=== PATIENT | female | born 1955 | race Caucasian/White ===

== ENCOUNTER 2016-06-23 15:16 | Emergency (ER) | payer OTHER, BC ==
--- NOTE | 2016-06-23 16:51 | UCPHY ---
H & P Time Seen by Provider: 06/23/16 16:37 Patient Type: New HPI/ROS: This patient reports 14 days of the illness consisting of nasal congestion primarily for the 1st several days and over the past 5 days she has developed facial pressure in the frontal more than maxillary sinus region that worsens when she bends over coughs. She has associated feeling of wheeze and some substernal tightness that feels similar to previous asthma. She reports a dry cough with occasional yellow sputum that improves with albuterol with no other exacerbating factors. ROS: Low-grade subjective fevers. No high fevers. No other constitutional symptoms. HEENT: No sore throat. No ear pain. No headache. Pulmonary: No respiratory distress. No pleuritic pain cardiovascular: No lightheadedness. No heart palpitations no lower extremity swelling. GI: No belly pain neuro: No complaints 7 point ROS is otherwise negative. Past Medical/Surgical History: Traumatic brain injury Asthma versus RAD Smoking Status: Never smoked Physical Exam: Physical Exam Vital signs are normal. General: No acute distress HEENT: Nose: Swollen nasal mucosa bilaterally with sinus tenderness to percussion in the frontal more than maxillary sinuses bilaterally. Ears: External canals and TMs clear bilaterally oropharynx: No erythema exudates or dysphonia. Eyes: Pupils equal and react to light. Extraocular motions are intact. Lungs: Clear to auscultation bilaterally. Currently no significant wheezing but faint wheeze when she coughs. No rales or rhonchi. No respiratory distress. Cardiac: Regular rate and rhythm with no murmur gallop rub. No peripheral edema. Skin: No rash or pallor. Neuro: Alert with no sensorimotor deficits. Initial differential diagnosis: Bronchitis, sinusitis, reactive airway disease , doubt influenza or pneumonia Constitutional: Initial Vital Signs Temperature (C) 36.4 C 06/23/16 16:40 Heart Rate 72 06/23/16 16:40 Respiratory Rate 18 06/23/16 16:40 Blood Pressure 140/92 H 06/23/16 16:40 O2 Sat (%) 99 06/23/16 16:40 O2 Delivery Mode Room Air Allergies/Adverse Reactions: clarithromycin [From Biaxin] Allergy (Verified 06/23/16 16:37) indomethacin [From Indocin] Allergy (Verified 06/23/16 16:36) indomethacin sodium [From Indocin] Allergy (Verified 06/23/16 16:36) Home Medications: Medication Instructions Recorded ALBUTEROL SULFATE 06/23/16 Doxycycline Hyclate 100 mg PO BID #14 capsule 06/23/16 Fioricet (*) 06/23/16 Fluticasone Hfa 220 Mcg [Flovent 2 puffs IH DAILY #1 mdi 06/23/16 220 MCG Hfa MDI (*)] Xanax 06/23/16 MDM/Departure - [facility] ED Course/Re-evaluation: Patient's vitals are normal and she appears well clinically. I counseled regarding sinusitis and reactive airway disease. Will start her on doxycycline Flovent. She already has albuterol at home with will continue to use the - Depart Disposition: Home, Routine, Self-Care Clinical Impression: Sinusitis Qualifiers: Sinusitis location: frontal Chronicity: acute Recurrence: non-recurrent Qualifier Code: (J01.10) Acute frontal sinusitis, unspecified Reactive airway disease Qualifiers: Asthma severity: mild intermittent Asthma complication type: with acute exacerbation Qualifier Code: (J45.21) Mild intermittent asthma with (acute) exacerbation Instructions: Reactive Airways Disease (ED), Sinusitis (ED) Additional Instructions: Diagnosis: 1. Sinusitis 2. Reactive airway disease Plan: Humidifier Doxycycline antibiotic Flovent steroid inhaler Continue albuterol inhaler with spacer for cough, wheeze or shortness of breath Call primary care physician to arrange follow-up appointment for further evaluation sometime within the next 3-5 days Good the emergency department for any significant worsening despite the treatment plan. Prescriptions: Doxycycline Hyclate 100 mg PO BID #14 capsule Fluticasone Hfa 220 Mcg [Flovent 220 MCG Hfa MDI (*)] 2 puffs IH DAILY #1 mdi Referrals: Sangeeta Gupta MD [Primary Care Provider] - As per Instructions - PQRS PQRS Measurement: NA
[2016-06-23 17:12] VITALS: BP 132/86; PULSE 64; RESP 16; TEMP 97.3; O2SAT 95
== END 2016-06-23 17:13 | disposition home or self-care (01) ==
LOC: CED 15:16
DX: J01.10 Acute frontal sinusitis, unspecified (principal); J45.21 Mild intermittent asthma with (acute) exacerbation
CPT/HCPCS: 99203-PO; G0463-PO

== ENCOUNTER → 2016-07-09 | Outpatient (CLI) | payer OTHER, BC ==
--- NOTE | 2016-07-09 18:16 | MA ---
Screening Digital Mammogram With iCAD Indication: Routine screening. Technique: Standard cephalocaudal and mediolateral oblique projections are obtained. This examinati on is processed by the iCAD computer-aided detection system. Comparison: May 2015 and January 2014. Breast density: Type B. Findings: CAD was reviewed. Heterogeneous microcalcifications and architectural distortion have devel oped in the deep upper-outer right breast at the 10-11 o'clock position (largely off the lateral gigi in of the film on the CC view). The left mammograms are negative. Impression: Development of heterogeneous microcalcifications and architectural distortion deep upper- outer right breast. BI-RADS 0: Needs additional imaging evaluation. Recommendation: Spot magnified exaggerated lateral CC, MLO and true lateral views of the upper-outer right breast. Proceed with sonography of the upper outer right breast at the discretion of the inter preting radiologist. [facility] will send a result letter to the patient. Negative mammography should not preclude additional workup of a clinically suspicious finding. The patient's information is entered into a reminder system with a target due date for her next mammo gram.
== END ==
LOC: FIMAGING 14:32
DX: Z12.31 Encounter for screening mammogram for malignant neoplasm of breast (principal)
CPT/HCPCS: G0202

== ENCOUNTER → 2016-07-18 | Outpatient (CLI) | payer OTHER, BC | LOC: FIMAGING 12:40 | PROVIDERS: ATTEND Internal Medicine | DX: Z12.39 Encounter for other screening for malignant neoplasm of breast (principal); R92.0 Mammographic microcalcification found on diagnostic imaging of breast | CPT/HCPCS: 76641; G0206 ==

== ENCOUNTER → 2016-08-06 | Outpatient (CLI) | payer OTHER, BC ==
[~2016-08-06] MED LIST: THROMBIN (RECOMBINANT) 5,000 UNIT VIAL TP ONE
== END ==
LOC: FIMAGING 13:25
PROVIDERS: ATTEND Internal Medicine
PROC: 0HBT3ZX Excision of Right Breast, Percutaneous Approach, Diagnostic (ICD-10-PCS; principal; 2016-08-06)
PROC: BH00ZZZ Plain Radiography of Right Breast (ICD-10-PCS; principal; 2016-08-06)
DX: C50.911 Malignant neoplasm of unspecified site of right female breast (principal); R92.0 Mammographic microcalcification found on diagnostic imaging of breast; Z17.0 Estrogen receptor positive status [ER+]
CPT/HCPCS: 19083; 88305; 88341; 88342; 88360; 88361; G0206

== ENCOUNTER 2016-09-04 06:02 | Day surgery (SDC) | payer OTHER, BC ==
[2016-09-04] MEDS ORDERED: LIDOCAINE 1% 5 ML SDV ONE (07:06)
[2016-09-04] MEDS ORDERED: ceFAZolin 2 GM/DEXTROSE 100 ML IV ONE (08:00)
[2016-09-04] MEDS ORDERED: BUPIVACAINE 0.5% 30 ML SDV ONE (09:28)
[2016-09-04] MEDS ORDERED: LR 1,000 ML IV ONE (09:43)
[2016-09-04] MEDS ORDERED: LIDOCAINE 1% 5 ML SDV ID PRN (09:43)
[2016-09-04] MEDS ORDERED: MIDAZOLAM 2 MG/2 ML VIAL ONE (09:59)
[2016-09-04] MEDS ORDERED: fentaNYL 100 MCG/2 ML INJ ONE ×3 (10:05→11:43)
[2016-09-04] MEDS ORDERED: PROPOFOL/EMULSION 500 MG/50 ML BOTTLE IV ONE (10:06)
--- NOTE | 2016-09-04 11:14 | GOP ---
[f rep st] OPERATIVE REPORT DATE OF OPERATION: 09/04/2016 SURGEON: Eunice Hanson MD QUANTITATIVE EQUITY HEAD: Lashell Diaz, ACOSTA ANESTHESIA: General. ANESTHESIOLOGIST: Jaylan Ruelas MD PREOPERATIVE DIAGNOSIS: Right upper outer breast cancer. POSTOPERATIVE DIAGNOSIS: Right upper outer breast cancer. PROCEDURE PERFORMED: 1. Right breast lumpectomy with right sentinel lymph node. 2. Right needle localized lumpectomy. FINDINGS: 1. Clips in specimen. 1. Negative lymph node. 2. SPECIMENS: Lumpectomy, sentinel lymph node and margins. ESTIMATED BLOOD LOSS: 10 cc. INDICATIONS: The patient is a 60-year-old woman with invasive breast cancer in the right upper oute r quadrant. DESCRIPTION OF PROCEDURE: She was brought into the operating room, placed supine on the table, and general anesthesia was administered. Her right breast and axilla were prepped and draped in the usu al sterile fashion. I infiltrated the area with 10 cc of 0.5% Marcaine. I made an ellipse around t he 2 localizing wires. I created medial and lateral flaps. I dissected down beyond the level of [facility] wire. The mass was marked green anterior, red superior, yellow medial, blue inferior, orange late ral, black posterior. This was submitted to Radiology and the clips were within the specimen. Next, I broke into the axillary space and identified the sentinel lymph node. It measured 140. Thi s was sent to Pathology and the results were negative. I obtained margins from the lumpectomy cavit y, red superior, yellow medial, blue inferior, orange lateral, black posterior. The cavity was michelle ed with 3 titanium clips. Hemostasis was achieved. The deep layer of the wound was closed with 3-0 Vicryl. Skin was closed with 3-0 Vicryl followed by 4-0 Monocryl. Mastisol, Steri-Strips, and arya rile dressing were applied. She was awakened in the operating room, extubated and transferred to [facility] PACU in stable condition. /[id number]/MODL
[2016-09-04] MEDS ORDERED: ONDANSETRON 4 MG/2 ML VIAL ONE (12:50)
== END 2016-09-04 15:37 | disposition home or self-care (01) ==
LOC: FSGY 06:02
PROVIDERS: ATTEND Surgery
PROC: 3E0W3KZ Introduction of Other Diagnostic Substance into Lymphatics, Percutaneous Approach (ICD-10-PCS; principal; 2016-09-04 10:00)
PROC: 0HBT0ZZ Excision of Right Breast, Open Approach (ICD-10-PCS; principal; 2016-09-04 10:00)
PROC: 07B50ZX Excision of Right Axillary Lymphatic, Open Approach, Diagnostic (ICD-10-PCS; principal; 2016-09-04 10:00)
DX: C50.411 Malignant neoplasm of upper-outer quadrant of right female breast (principal); R92.0 Mammographic microcalcification found on diagnostic imaging of breast; E03.9 Hypothyroidism, unspecified; E78.5 Hyperlipidemia, unspecified; Z87.81 Personal history of (healed) traumatic fracture; Z17.0 Estrogen receptor positive status [ER+]
CPT/HCPCS: 19281; 19301; 38525; 76098; 78195; A9520; J0690; J2250; J2405; J2704; J3010

== ENCOUNTER → 2016-10-26 | Outpatient (CLI) | payer OTHER, BC | LOC: FIMAGING 15:41 | PROVIDERS: ATTEND Nurse Practitioner | DX: R05 Cough (principal) ==

== ENCOUNTER 2017-04-27 11:53 | Emergency (ER) | payer OTHER, BC ==
[2017-04-27 12:06] VITALS: O2SAT 95
[2017-04-27] MEDS ORDERED: IBUPROFEN 600 MG TAB PO ONE (12:10)
[2017-04-27] MEDS ORDERED: HYDROCODONE/APAP 5/325 TAB PO ONE (12:22)
--- NOTE | 2017-04-27 12:22 | EDPHY ---
HPI/HX/ROS/PE/MDM Narrative: CHIEF COMPLAINT: Left ankle injury HPI: The patient is a 61 y/o female arriving with her complaining of left ankle pain secondary to slipping on stairs today. She was carrying stuff down her basement stairs and slipped off the last step and landed on her left side. She caught some of her fall with her left arm, but primarily injured her left ankle. She was able to walk afterwards, but her pain has worsened. It is primarily located along the lateral aspect of her foot and extends into her midfoot and she also has some pain on the lateral aspect of her left knee. She denies other injuries, weakness, or paresthesias. REVIEW OF SYSTEMS: Aside from elements discussed in the HPI, a comprehensive 10-point review of systems was reviewed and is negative. PMH: Anxiety SOCIAL HISTORY: at bedside. PHYSICAL EXAM: General:Patient is alert, in no acute distress. ENT:Eyes are normal to inspection. ENT inspection normal. Neck: Normal inspection. Full range of motion. Respiratory:No respiratory distress. Breath sounds normal bilaterally. Cardiovascular: Regular rate and rhythm. Strong peripheral pulses. Normal cap refill. Abdomen:The abdomen is nontender to palpation. There are no peritoneal signs. Back: Normal to inspection. No tenderness to palpation. Skin: Normal color. No rash. Warm and dry. Extremities: Mild tenderness to lateral aspect of left ankle with some swelling , otherwise normal appearance. Full range of motion. Neuro: Oriented x3. Normal motor function. Normal sensory function. ED Course: This is a healthy 61 y/o female who presents with left ankle pain secondary to slipping and falling off a step this morning. She has mild tenderness over the lateral malleolus with mild overlying swelling. No other trauma noted. She is neurovascularly intact. Plan for knee and ankle x-rays to rule out fracture. 600mg PO ibuprofen and 1 tab Vicodin administered for pain. X-rays are negative for fracture. Reevaluated patient and discussed results. She will be discharged home in splint with standard sprain care instructions. Return precautions discussed. She agrees with plan. - Data Points Imaging Results: Imaging Impressions Ankle X-Ray 04/27/17 12:22 Impression: Negative. No acute fracture. Knee X-Ray 04/27/17 12:22 Impression: Negative. No acute fracture or effusion. Imaging: I viewed and interpreted images myself Medications Given: Discontinued Medications Hydrocodone Bitart/Acetaminophen ([place] 5/325) 1 tab PO EDNOW ONE Stop: 04/27/17 12:23 Last Admin: 04/27/17 12:32 Dose: 1 tab Ibuprofen (Motrin) 600 mg PO EDNOW ONE Stop: 04/27/17 12:11 Last Admin: 04/27/17 12:12 Dose: 600 mg General Time Seen by Provider: 04/27/17 12:12 Initial Vital Signs: Initial Vital Signs Temperature (C) 37 C 04/27/17 11:58 Heart Rate 69 04/27/17 11:58 Respiratory Rate 22 H 04/27/17 11:58 Blood Pressure 136/69 H 04/27/17 11:58 O2 Sat (%) 95 04/27/17 11:58 O2 Delivery Mode Room Air Allergies/Adverse Reactions: clarithromycin [From Biaxin] Allergy (Verified 04/27/17 11:57) indomethacin [From Indocin] Allergy (Verified 04/27/17 11:57) indomethacin sodium [From Indocin] Allergy (Verified 04/27/17 11:57) Home Medications: Medication Instructions Recorded ALBUTEROL SULFATE 06/23/16 Fioricet (*) 06/23/16 Fluticasone Hfa 220 Mcg [Flovent 2 puffs IH DAILY #1 mdi 06/23/16 220 MCG Hfa MDI (*)] Xanax 06/23/16 LEVOTHYROXINE SODIUM 04/27/17 Departure - Departure Disposition: Home, Routine, Self-Care Clinical Impression: Left ankle sprain Qualifiers: Encounter type: initial encounter Involved ligament of ankle: unspecified ligament Qualified Code(s): S93.402A - Sprain of unspecified ligament of left ankle, initial encounter Condition: Good Instructions: Ankle Sprain (ED) Additional Instructions: 1. Take 600mg ibuprofen every 6-8 hours as needed for pain and swelling for the next few days. 2. Apply ice to sore areas for the first 24-48 hours if helpful with pain. Keep extremity elevated when possible. 3. Wear splint for comfort. Okay to bear weight as tolerated. 4. Follow up with your primary care provider if needed for unimproved symptoms over the next few days. Referrals: FORGOT,DOCTOR [Other] - As per Instructions Eunice Shukla MD [Medical Doctor] - As per Instructions Report Scribed for: Anibal Pena Report Scribed by: Layne Oseguera Date of Report: 04/27/17 Time of Report: 12:22 Physician Review and Approval Statement: Portions of this note were transcribed by an ED scribe. I personally performed the history, physical exam, and medical decision making; and confirm the accuracy of the information in the transcribed note.
[2017-04-27 13:23] VITALS: BP 139/89; PULSE 64; RESP 16; TEMP 97.3
== END 2017-04-27 13:23 | disposition home or self-care (01) ==
DX: S93.402A Sprain of unspecified ligament of left ankle, initial encounter (principal); W01.0XXA Fall on same level from slipping, tripping and stumbling without subsequent striking against object, initial encounter; Y92.89 Other specified places as the place of occurrence of the external cause
CPT/HCPCS: 73564; 73610; 99283; L4386

== ENCOUNTER → 2017-07-24 | Outpatient (CLI) | payer OTHER, BC | LOC: FIMAGING 09:39 | PROVIDERS: ATTEND Internal Medicine Hematology & Oncology | DX: Z12.31 Encounter for screening mammogram for malignant neoplasm of breast (principal); Z85.3 Personal history of malignant neoplasm of breast ==

== ENCOUNTER → 2017-09-12 | Outpatient (CLI) | payer OTHER, BC ==
[~2017-09-12] MED LIST changes: +IOPAMIDOL (ISOVUE-300) 100 ML BTL ONE; -THROMBIN (RECOMBINANT) 5,000 UNIT VIAL TP ONE
== END ==
LOC: FIMAGING 09:05
PROVIDERS: ATTEND Internal Medicine Gastroenterology
DX: R10.31 Right lower quadrant pain (principal); K44.9 Diaphragmatic hernia without obstruction or gangrene
CPT/HCPCS: 74177; Q9967

== ENCOUNTER → 2018-02-19 | Outpatient (CLI) | payer OTHER, BC | LOC: FIMAGING 14:18 | PROVIDERS: ATTEND Internal Medicine Hematology & Oncology | DX: R05 Cough (principal); Z85.3 Personal history of malignant neoplasm of breast ==

== ENCOUNTER 2018-03-22 19:03 | Emergency (ER) | payer OTHER, BC ==
[2018-03-22] MEDS ORDERED: LIDOCAINE 2% VISCOUS 15 ML UDCUP PO ONE (19:38)
[2018-03-22] MEDS ORDERED: HYOSCYAMINE SULFATE 0.125 MG TAB PO ONE (19:38)
[2018-03-22] MEDS ORDERED: IPRATROPIUM/ALBUTEROL 3 ML DEYVIAL IH ONE (19:38)
[2018-03-22] MEDS ORDERED: methylPREDNISolone SOD SUCC 125 MG/2 ML VIAL IVP ONE (19:38)
[2018-03-22] MEDS ORDERED: MAG HYDROX/AL HYDROX/SIMETH 30 ML UDCUP PO ONE (19:38)
[2018-03-22] MEDS ORDERED: NS 500 ML IV ONE (19:38)
[2018-03-22] MEDS ORDERED: ASPIRIN 81 MG CHEWABLE TAB PO ONE (19:38)
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
[2018-03-22 19:57] LABS: PLATELET COUNT 200 10^3/uL (150-400)
[2018-03-22] MEDS ORDERED: IOPAMIDOL (ISOVUE 370) 100 ML BTL IV ONE (20:46)
[2018-03-22 22:18] VITALS: BP 113/69
--- NOTE | 2018-03-22 22:42 | CPEKG ---
Test Reason : OPEN Blood Pressure : / mmHG Vent. Rate : 074 BPM Atrial Rate : 074 BPM P-R Int : 175 ms QRS Dur : 094 ms QT Int : 408 ms P-R-T Axes : 090 049 034 degrees QTc Int : 453 ms Sinus rhythm Confirmed by Dina Patel ([id number]) on 03/22/2018 10:41:37 PM Referred By: Confirmed By:Dina Patel
--- NOTE | 2018-03-22 22:42 | CPEKG ---
Test Reason : OPEN Blood Pressure : / mmHG Vent. Rate : 090 BPM Atrial Rate : 091 BPM P-R Int : 224 ms QRS Dur : 083 ms QT Int : 358 ms P-R-T Axes : 032 046 -02 degrees QTc Int : 438 ms Sinus rhythm Prolonged HI interval Confirmed by Dina Patel ([id number]) on 03/22/2018 10:41:37 PM Referred By: Confirmed By:Dina Patel
== END 2018-03-22 22:18 | disposition home or self-care (01) ==
DX: J40 Bronchitis, not specified as acute or chronic (principal); J98.11 Atelectasis; J45.909 Unspecified asthma, uncomplicated; E86.9 Volume depletion, unspecified
CPT/HCPCS: 71046; 71275; 93005; 96361; 96374; 99285; J2930; Q9967; 84484-PO

== ENCOUNTER → 2018-08-15 | Outpatient (CLI) | payer OTHER, BC | LOC: FIMAGING 09:57 | PROVIDERS: ATTEND Internal Medicine | DX: Z12.31 Encounter for screening mammogram for malignant neoplasm of breast (principal); Z85.3 Personal history of malignant neoplasm of breast; Z92.3 Personal history of irradiation ==